=== PATIENT | male | born 1975 | race Caucasian/White ===

== ENCOUNTER 2020-08-17 17:49 | Emergency (ER) | payer OTHER ==
[~2020-08-17] VITALS: Ht 167.6 cm; Wt 100.0 kg
[2020-08-17 19:12] LABS: BASO # 0.1 (0.0-0.2); BASO % 1.1 % (0.0-2.0); EOS # 0.2 (0.0-0.7); GRAN # 5.1 (1.4-6.5); GRAN % 57.1 % (42.2-75.2); HEMATOCRIT 48.3 % (42.0-52.0); HEMOGLOBIN 16.1 g/dl (13.5-18.0); LYMPH # 2.6 (1.2-3.4); LYMPH % 29.2 % (20.0-51.0); MEAN CELL VOLUME 89 fl (80.0-100.0); MEAN CORPUSCULAR HEMOGLOBIN 30 pg (27.0-31.0); MEAN CORPUSCULAR HGB CONC 33 g/dl (33.0-37.0); MEAN PLATELET VOLUME 9.7 fl (7.4-10.4); MONO # 0.9 (0.1-0.6); MONO % 10.1 % (1.7-9.3); PLATELET COUNT 316 K/mm3 (130-400); RED BLOOD COUNT 5.46 M/mm3 (4.20-5.60); REDCELL DISTRIBUTION WIDTH-CV 13.6 % (11.5-14.5)
[2020-08-17 19:25] LABS: ALBUMIN 4.5 gm/dL (3.5-5.0); BILIRUBIN,TOTAL 0.1 mg/dL (0.0-1.0); CALCIUM 8.9 mg/dL (8.4-10.2); CREATININE, serum 1.17 (0.66-1.25); POTASSIUM 3.7 mmol/L (3.4-5.0); TOTAL PROTEIN 8.8 gm/dL (6.4-8.2)
[2020-08-17 22:09] VITALS: BP 152/90; PULSE 78; TEMP 97.8
== END 2020-08-17 22:09 | disposition home or self-care (01) ==
LOC: COL.ER 17:49
PROVIDERS: Nurse Practitioner Family
DX: S09.90XA Unspecified injury of head, initial encounter (principal); F10.129 Alcohol abuse with intoxication, unspecified; Z04.1 Encounter for examination and observation following transport accident; F17.210 Nicotine dependence, cigarettes, uncomplicated; V69.40XA Driver of heavy transport vehicle injured in collision with unspecified motor vehicles in traffic accident, initial encounter; W22.11XA Striking against or struck by driver side automobile airbag, initial encounter; Y92.410 Unspecified street and highway as the place of occurrence of the external cause
CPT/HCPCS: J2405; J7030

== ENCOUNTER 2021-06-21 18:57 | Observation (INO) | payer SELFPAY ==
[~2021-06-21] VITALS: Ht 172.7 cm; Wt 136.4 kg
[2021-06-21 20:35] LABS: BASO # 0.1 K/mm3 (0.0-0.2); BASO % 0.8 % (0.0-2.0); EOS # 0.1 K/mm3 (0.0-0.7); EOS % 0.9 % (0.0-4.0); GRAN # 11.3 K/mm3 (1.4-6.5); GRAN % 75.8 % (42.2-75.2); HEMATOCRIT 48.9 % (42.0-52.0); HEMOGLOBIN 16.2 g/dl (13.5-18.0); LYMPH # 1.9 K/mm3 (1.2-3.4); LYMPH % 13.1 % (20.0-51.0); MEAN CELL VOLUME 89 fl (80.0-100.0); MEAN CORPUSCULAR HEMOGLOBIN 29 pg (27-31); MEAN CORPUSCULAR HGB CONC 33 g/dl (33.0-37.0); MEAN PLATELET VOLUME 10.6 fl (7.4-10.4); MONO # 1.3 K/mm3 (0.1-0.6); MONO % 8.9 % (1.7-9.3); PLATELET COUNT 331 K/mm3 (130-400); RED BLOOD COUNT 5.52 M/mm3 (4.20-5.60); REDCELL DISTRIBUTION WIDTH-CV 14.5 % (11.5-14.5)
[2021-06-21 21:10] LABS: BILIRUBIN,TOTAL 0.2 mg/dL (0.2-1.2); C-REACTIVE PROTEIN 0.24 mg/dL (0.00-0.50); CALCIUM 8.9 mg/dL (8.4-10.2); CREATININE, serum 1.04 mg/dL (0.72-1.25); POTASSIUM 3.9 mmol/L (3.5-4.5); TOTAL PROTEIN 7.3 gm/dL (6.2-8.1)
[2021-06-22] VITALS (15 sets, daily range): BP systolic 146–175; BP diastolic 63–98; PULSE 65–78; TEMP 97.6–98.3
--- NOTE | 2021-06-22 01:19 | NUR ---
PATIENT UP TO FLOOR AT 0100. ALERT AND ORIENTED. MED RX COMPLETED, PT TAKES NO MEDS AT HOME. PATIENT HAS NO PRIOR HISTORY. NO PRIMARY DOCTOR. ASSESSMENTS COMPLETED. NS STARTED TO R HAND IV AT 125 ML/HR. C/O MODERATE PAIN 10/03 AND PRN DILAUDID GIVEN. PATIENT TEACHING REGARDING PAIN CONTROL. PATIENT IN AGREEMENT TO CARE PLAN. AMBULATED TO BATHROOM INDEPENDENTLY AND HAD UNMEASURED VOID. NPO FOR POSSIBLE SURGERY TOMORROW. NO FURTHER NEEDS. CALL LIGHT WITHIN REACH.
--- NOTE | 2021-06-22 08:48 | NUR ---
PT ASSESSED. NO COMPLAINTS OF PAIN OR DYSPNEA. NO SIGNS OR SYMPTOMS OF DISTRESS. CALL LIGHT WITHIN REACH. CONSENT SIGNED
--- NOTE | 2021-06-22 13:58 | NUR ---
MARIA LUISA met with the pt to complete intake. The pt lives alone but has children. The pt reports next of kin is sister, Amanda [phone]. The pt reports independnent on all ADLS and does not use any DME. The reports no PCP, but does use [facility] for medications. PT declined help with PCP. PT is not interested in [facility] at this time. MARIA LUISA provided [employer] assistance application, due to pt is self-pay. DC: Home
--- NOTE | 2021-06-22 23:48 | NUR ---
Report received from KIM Rodriguez. Patient resting quietly in his bed during shift report. Patient is here due to acute cholyecystitis, surgery was attempted 06/22 but patient was unable to be intubated. Per report physicians will attempt surgery tomorrow, 06/23. Full body assessment completed and vital signs within normal limits. Patient is A&Ox3 and pleasant. Patient denies pain at this time as well as no other complaints. Call light within reach.
[2021-06-23 00:08] VITALS: BP 157/83; PULSE 66; TEMP 98.3
[2021-06-23 03:30] VITALS: BP 157/89; PULSE 64; TEMP 97.9
[2021-06-23 06:51] LABS: HEMOGLOBIN 15.4 g/dl (13.5-18.0); MEAN CELL VOLUME 91 fl (80.0-100.0); MEAN CORPUSCULAR HEMOGLOBIN 29 pg (27-31); MEAN CORPUSCULAR HGB CONC 32 g/dl (33.0-37.0); MEAN PLATELET VOLUME 10.4 fl (7.4-10.4); PLATELET COUNT 267 K/mm3 (130-400); RED BLOOD COUNT 5.27 M/mm3 (4.20-5.60); REDCELL DISTRIBUTION WIDTH-CV 13.9 % (11.5-14.5)
[2021-06-23 07:14] LABS: ALBUMIN 3.8 gm/dL (3.5-5.0); CALCIUM 9.1 mg/dL (8.4-10.2); CREATININE, serum 1.12 mg/dL (0.72-1.25); POTASSIUM 3.7 mmol/L (3.5-4.5)
[2021-06-23] MEDS ORDERED: AMOXICILLIN 8751 TAB PO (07:21)
[2021-06-23 07:49] VITALS: BP 151/78; PULSE 60; TEMP 98
--- NOTE | 2021-06-23 07:59 | NUR ---
Discharge instructions discussed with the patient, instructed to finish course of antibiotics/ script for Augmentin sent to [facility], explaiend that office will call him to reschedule his surgery as an outpatient, IV removed from right hand, instructed patient on maintaiing a low fat diet for now and he verbalized understanding of his instructions, he is waiting for his ride to arrive, I will escort him out the door
== END 2021-06-23 08:05 | disposition home or self-care (01) ==
LOC: COL.ER 18:57 → SURG 23:47
PROVIDERS: Emergency Medicine; Nurse Practitioner; ADMIT Surgery
DX: K80.12 Calculus of gallbladder with acute and chronic cholecystitis without obstruction (principal); F17.210 Nicotine dependence, cigarettes, uncomplicated; Z53.8 Procedure and treatment not carried out for other reasons
CPT/HCPCS: G0378; J0360; J1100; J1170; J2405; J2543; J2704; J3010; J7030; J7120; Q9967

== ENCOUNTER 2021-06-25 10:38 | Day surgery (SDC) | payer SELFPAY ==
[~2021-06-25] VITALS: Ht 172.7 cm; Wt 114.5 kg
[2021-06-25] VITALS (8 sets, daily range): BP systolic 152–190; BP diastolic 79–97; PULSE 74–94; TEMP 97.7–98.6
[~2021-06-25 10:38] MED LIST: AMOXICILLIN 8751 TAB PO
--- NOTE | 2021-06-25 11:22 | NUR ---
Notified URIEL Rosa of patient's high blood pressure. Orders for labatolol.
[2021-06-25] MEDS ORDERED: NORCO 325 MG-51 TAB PO (14:50)
--- NOTE | 2021-06-25 15:30 | NUR ---
PATIENT TRANSPORTED PER CART FROM PACU TO BAY [facility] [employer]. VERBAL REPORT RECEIVED. MONITORS APPLIED.PATIENT CONTINUED ON 2 LITERS PER NASAL.SAO2 AT 94%. PATIENT TALKS WITH STAFF AND MOVES SELF ON BED. PATIENT STATES ABD IS ALITTLE SORE. PATIENT GIVEN MUFFIN AND APPLE JUICE.
--- NOTE | 2021-06-25 15:45 | NUR ---
VSS ON 2 LITERS. SAO2 97%. O2 DC'D AND PATIENT ON ROOM AIR. PATIENT STATES TALKED WITH RIDE AND THEY WILL BE HERE AT 5 PM. PATIENT TOLERATES MUFFIN AND JUICE WITHOUT PROBLEMS. DENIES NAUSEA. 1551 PATIENT GIVEN NORCO PO ORDERED FOR ABD DISCOMFORT. PATIENT WATCHES TV.
--- NOTE | 2021-06-25 16:00 | NUR ---
VSS ON ROOM AIR. PATIENT WATCHING TV. DOES NOT VOICE ANY C/O'S/
--- NOTE | 2021-06-25 16:20 | NUR ---
VSS ON ROOM AIR. PATEINT STATES PAIN MED STARTING TO HELP WITH DISCOMFORT. PATIENT AMBULATES TO RESTROOM WITH STEADY GAIT AND VOIDS WITHOUT PROBLEMS. PATIENT AMBULATED BACK TO BED. IV HEPLOCK.
--- NOTE | 2021-06-25 16:45 | NUR ---
VSS ON ROOM AIR. PATIENT WATCHING TV. DOES NOT VOICE ANY C/O'S. IV DC'D WITH CATHETER TIP INTACT. PRESSURE AND BANDAGE APPLIED. DISCHARGE INSTRUCTIONS GIVEN VERBAL AND DISCHARGE PACKET PROVIDED. QUESTIONS ANSWERED AND PATIENT VOICED UNDERSTANDING. PATIENT CHANGES INTO STREET CLOTHES.
== END 2021-06-25 17:05 | disposition home or self-care (01) ==
LOC: SDCO 10:38
DX: K80.12 Calculus of gallbladder with acute and chronic cholecystitis without obstruction (principal); F17.210 Nicotine dependence, cigarettes, uncomplicated
CPT/HCPCS: J0330; J0360; J0690; J1100; J1885; J2250; J2405; J2704; J3010; J7120